=== PATIENT | female | born 1950 | race Caucasian/White ===

== ENCOUNTER 2019-02-23 14:05 | Inpatient (IN) ==
[2019-02-23] MEDS ORDERED: *HR* Dextrose 50 % in Water (Syg) 50 ML SYRINGE IVP PRN (16:45)
[2019-02-23] MEDS ORDERED: Dextrose Gel 15 GM/37.5 ML TUBE PO PRN ×2 (16:45)
[2019-02-23] MEDS ORDERED: D5% in Water 1,000 ML IVC PRN (16:45)
[2019-02-23] MEDS: *HR* Metformin 500 MG TABLET PO SCH (16:54)
[2019-02-23] MEDS: cephALEXin 500 MG CAPSULE PO SCH ×2 (16:54→20:53)
[2019-02-23] MEDS: Insulin LISPRO 300 UNITS/3 ML VIAL SQ SCH (16:54)
[2019-02-23] MEDS: Insulin DETEMIR 100 UNIT/ML X5UNITS SQ SCH (20:53)
[2019-02-23] MEDS: Doxycycline 100 MG CAPSULE PO SCH (20:53)
[2019-02-23] MEDS ORDERED: Verapamil ER (24 HR) 120 MG TABLET.ER PO ONE (21:00)
[2019-02-23] MEDS ORDERED: Verapamil ER (24 HR) 240 MG TABLET.ER PO SCH (21:00)
[2019-02-24] MEDS: *HR* OxyCODONE Immed Rel 5 MG TABLET PO PRN ×2 (02:29→10:11)
[2019-02-24 07:23] LABS: Basophils % 0.2 %; Eosinophils # 0.2 K/mcL (0.0-0.6); Eosinophils % 1.3 %; Hematocrit 33.6 % (35.3-44.9); Hemoglobin 10.5 g/dL (11.5-15.4); Immature Granulocytes % 0.7 % (0-4); Lymphocytes # 2.5 K/mcL (0.6-4.6); Lymphocytes % 17.6 %; Mean Corpuscular HGB Conc 31.3 g/dL (31.6-35.5); Mean Corpuscular Hemoglobin 30.3 pg (28.0-33.3); Mean Corpuscular Volume 97.1 fL (83.0-100.0); Mean Platelet Volume 10.3 fL (9.4-12.4); Monocytes # 1.2 K/mcL (0.0-1.3); Monocytes % 8.1 %; Platelet Count 376 K/mcL (140-400); Red Blood Count 3.46 M/mcL (3.82-4.97); Red Cell Distribution Width 13.9 % (11.5-14.5); Segmented Neutrophils % 72.1 %; White Blood Count 14.2 K/mcL (4.3-11.1)
[2019-02-24 07:31] LABS: Neutrophils # 10.2 K/mcL (1.6-8.9)
[2019-02-24 08:24] LABS: BUN/Creatinine Ratio 37 (6-26); Blood Urea Nitrogen 28 mg/dL (8-23); Carbon Dioxide 33 mEq/L (23-29); Chloride 104 mEq/L (98-107); Glucose 77 mg/dL (70-105); Osmolality,Calculated 296 (280-300); Potassium 4.5 mEq/L (3.5-5.1); Sodium 141 mEq/L (136-145); eGFR For African Americans > 60 (> 60); eGFR For Non-African Americans > 60 (> 60)
[2019-02-24] MEDS: Insulin LISPRO 300 UNITS/3 ML VIAL SQ SCH ×3 (08:31→17:24)
[2019-02-24] MEDS: *HR* Metformin 500 MG TABLET PO SCH ×2 (08:39→17:24)
[2019-02-24] MEDS: Verapamil ER (24 HR) 240 MG TABLET.ER PO SCH ×2 (08:39→20:23)
[2019-02-24] MEDS: cephALEXin 500 MG CAPSULE PO SCH ×3 (08:40→17:24)
[2019-02-24] MEDS: *HR* SitaGLIPtin 25 MG TABLET PO SCH (08:40)
[2019-02-24] MEDS: Cholecalciferol (D-3) 1,000 UNIT (25MCG) TABLET PO SCH (08:40)
[2019-02-24] MEDS: Furosemide 40 MG TABLET PO SCH (08:40)
[2019-02-24] MEDS: BuPROPion XL (24 HR) 150 MG TABLET PO SCH (08:40)
[2019-02-24] MEDS: Doxycycline 100 MG CAPSULE PO SCH (08:41)
[2019-02-24] MEDS: Aspirin Enteric Coated 81 MG Tablet PO SCH (08:41)
[2019-02-24] MEDS: FLUoxetine 20 MG CAPSULE PO SCH (08:41)
[2019-02-24] MEDS: predniSONE 20 MG TABLET PO SCH (08:41)
--- NOTE | 2019-02-24 17:16 | Internal Med History&Physical ---
Date of Encounter: 02/24/19 Time of Encounter: 16:50 Assessment and Plan (1) Cellulitis Current visit: No Status: Acute She will complete prescribed course of antibiotics today. Qualifiers: Site of cellulitis: extremity Site of cellulitis of extremity: lower extremity Laterality: right Qualified Code(s): L03.115 - Cellulitis of right lower limb (2) DM type 2 (diabetes mellitus, type 2) Current visit: No Status: Chronic Hemoglobin A1c was 7.0% on 02/16/2019. Continue Levemir, Glucophage, Januvia, and Accu-Cheks with SSI. Qualifiers: Diabetes mellitus vermin exterminator insulin use: with vermin exterminator use Diabetes mellitus complication status: with kidney complications Diabetes mellitus complication detail: with chronic kidney disease Chronic kidney disease stage: stage 3 (moderate) Qualified Code(s): E11.22 - Type 2 diabetes mellitus with diabetic chronic kidney disease; N18.3 - Chronic kidney disease, stage 3 (moderate); Z79.4 - USP (current) use of insulin (3) CKD (chronic kidney disease) stage 3, GFR 30-59 ml/min Current visit: No Status: Chronic Creatinine today was 0.76 with estimated GFR > 60. Monitor renal indices. (4) Hypertension Current visit: No Status: Chronic Continue lisinopril and verapamil. Qualifiers: Hypertension type: essential hypertension Qualified Code(s): I10 - Essential (primary) hypertension (5) Hypothyroid Current visit: No Status: Chronic TSH was decreased at 0.290 on 02/07/2019. Synthroid dose does not appear to have changed since lab was drawn. Recheck TSH in a.m. Qualifiers: Hypothyroidism type: acquired Qualified Code(s): E03.9 - Hypothyroidism, unspecified (6) Anemia Current visit: No Status: Chronic February 24. Check anemia testing in a.m. Qualifiers: Anemia type: other cause Other causes of anemia: other cause, not classif ied Qualified Code(s): D64.89 - Other specified anemias (7) Leukocytosis Current visit: No Status: Acute Present on most labs since February 2014. Neutrophilia rarely present. Continue to monitor. Qualifiers: Leukocytosis type: unspecified Qualified Code(s): D72.829 - Elevated white blood cell count, unspecified (8) COPD (chronic obstructive pulmonary disease) Current visit: No Status: Chronic Continue Pro Air MDI as needed. Qualifiers: COPD type: unspecified COPD Qualified Code(s): J44.9 - Chronic obstructive pulmonary disease, unspecified (9) Gout Current visit: No Status: Acute She was started on allopurinol and prednisone during her recent [facility] stay. Recheck uric acid level in a.m. Qualifiers: Gout site: foot Gout etiology: unspecified cause Chronicity: acute Laterality: right Qualified Code(s): M10.9 - Gout, unspecified (10) Venous stasis Current visit: No Status: Chronic Continue present Rx to right lower leg. Internal Medicine - H&P: HPI Chief complaint: Cellulitis, venous stasis, gout Plans for Post Hospital Care: Home History of present illness: Ms. Burrell is a 68 year old female who was hospitalized in acute-care at [facility] February 16- after presenting with right foot/lower leg pain, erythema, and edema. She was diagnosed with cellulitis, venous stasis, and gout. Uric acid level was elevated at 11.2. She was started on prednisone and allopurinol along with antibiotics. She was discharged to [facility] for rehabilitation therapy prior to returning to independent living. She denies past knowledge of gout. She had remote left elbow fracture. She has DJD. She denies other bone joint or muscle disorders. Past Med Surg Social Fam HX - Past Medical History Medical history: arthritis, CHF, COPD, diabetes, hyperlipidemia, hypertension, thyroid disease, venous stasis, other Additional medical history: sleep apnea, stage 3 kidney failure Psychiatric history: anxiety, depression - Past Surgical History Surgical History: thyroidectomy Additional surgical history: elbow surgery - Social History Smoking Status: Former smoker Smokeless Tobacco Status: No Alcohol use: none Drug use: none - Family History Mother Adopted: No Family Member Ethnicity: Non- Living Status: Hx Family Cardiac Disorders: Yes Hx Family Respiratory Disorders: Yes Hx Family Cancer: Yes Hx Family GI Disorders: No Hx Family Endocrine Disorder: Yes (DM) Hx Family Neuromuscular Disorders: No Hx Family Neurologic Disorders: No Hx Family HEENT Disorders: No Hx Family Autoimmune Disorders: No Father Family Member Ethnicity: Non- Living Status: Hx Family Cardiac Disorders: Yes Hx Family Respiratory Disorders: No Hx Family Cancer: Yes (prostate) Hx Family GI Disorders: No Hx Family Endocrine Disorder: Yes Hx Family Neuromuscular Disorders: No Hx Family Neurologic Disorders: No Hx Family HEENT Disorders: No Hx Family Autoimmune Disorders: No Internal Medicine - H&P: Meds Ezetimibe [Zetia] 10 mg PO DAILY 04/25/15 [History] Verapamil ER (24 HR) [Calan SR] 240 mg PO BID 04/25/15 [History] Bupropion HCl [Wellbutrin Xl] 300 mg PO DAILY 05/22/16 [History] Albuterol Sulfate [Proair Hfa] 2 puff IH Q4H PRN 07/21/17 [History] Cholecalciferol (D-3) [Vitamin D] 4,000 unit PO DAILY 07/21/17 [History] FLUoxetine HCl [Prozac] 40 mg PO DAILY 07/21/17 [History] Ferrous Sulfate 325 mg PO DAILY 07/21/17 [History] Insulin Glargine,Hum.rec.anlog [Lantus Solostar] 50 units SQ HS 07/21/17 [History] Lisinopril 2.5 mg PO DAILY 07/21/17 [History] Metformin HCl [Glucophage] 1,000 mg PO BID 07/21/17 [History] Aspirin [Adult Aspirin Regimen] 81 mg PO DAILY 02/16/19 [History] Furosemide [Lasix] 40 mg PO DAILY 02/16/19 [History] Insulin ASPART [Novolog Flexpen] 0 unit SQ TIDAC 02/16/19 [History] Levothyroxine Sodium 175 mcg PO QAM 02/16/19 [History] Pravastatin Sodium [Pravachol] 40 mg PO HS 02/16/19 [History] SitaGLIPtin [Januvia] 100 mg PO DAILY 02/16/19 [History] Allopurinol [Zyloprim 100 MG] 100 mg PO DAILY #30 tablet 02/20/19 [Rx] OxyCODONE Immed Rel [Roxicodone 5 MG] 10 mg PO Q6HR PRN 5 Days #20 tablet 02/20/19 [Rx] predniSONE [PredniSONE] 40 mg PO DAILY #28 tablet 02/20/19 [Rx] Cephalexin [Keflex] 500 mg PO QID 1 Days #4 capsule 02/23/19 [Rx] Doxycycline 100 mg PO BID 1 Days #2 capsule 02/23/19 [Rx] Allergy/AdvReac Type Severity Reaction Status Date / Time No Known Allergies Allergy Verified 02/16/19 13:27 All Systems PM: A 10-system review of systems was performed and is negative for pertinent findings except as documented above in the HPI. Review of systems: Gen.: Her weight has been stable at approximately 114 kg since March 2015 [facility] hospitalization. Cardiovascular: She has a history of hypertension but denies NV heart failure angina DVT or pulmonary embolus. She has not had a stress test or heart catheterization. She reports being told she has a "enlarged heart". Respiratory: She smoked from approximately age [age] up to 2 packs per day. She thinks she had PFTs approximately 2009 at [facility]. She does not wear home oxygen. GI: She denies disorders of her liver gallbladder or exocrine pancreas : She reported at the March 2015 hospitalization she thinks she has a small kidney stone. She has CKD stage 3 and follows with a [place] coal hauler operator. She denies other kidney or bladder disorders Neurologic: She denies large distribution strokes or seizures. Endocrine: She had thyroid cancer with total thyroidectomy in the past. She is on replacement levothyroxine. She has hyperlipidemia and was diagnosed with DM 2 approximately 2004. Hematology/oncology: She had thyroid cancer as mentioned. She denies other internal malignancies . She was unaware she had anemia on most labs since March 2015. Psychiatric: She has depression but no significant anxiety or other mental health issues Musk skeletal: As per history of present illness - Constitutional Vitals: Temp Pulse Resp BP Pulse Ox 98.6 F 59 16 164/66 91 02/24/19 07:07 02/24/19 07:07 02/24/19 07:07 02/24/19 07:07 02/24/19 07:07 Exam: Gen.: She is a well-developed obese female lying in bed who appears in no severe distress at present time. HEENT: Head is atraumatic and normocephalic. Eyes: EOMI. There is no scleral icterus. Mouth: Mucosa is moist. Neck: Supple and nontender. There is no thyromegaly or adenopathy noted. Heart: Regular without murmurs gallops or ectopics Lungs: No wheezes or crackles are heard. Abdomen: Soft and nontender. No masses or guarding are noted. Extremities: There is no cyanosis edema or clubbing noted. Dorsalis pedis and posterior tibial pulses are trace palpable bilaterally. She has venous stasis erythema of the right lower leg. There is slight tenderness to touch the area. She has no pain with movement of the first MTP joints. There is slight discomfort on passive range of motion of the right ankle. Neurologic: Mental status: She is talkative and a fair to good historian. She does not remember some details of her history. Cranial nerves: Smile is symmetric. Forehead wrinkles bilaterally. Tongue protrudes midline. EOMI. Motor: There is no pronator drift. Cerebellar: Finger to nose is intact bilaterally. Skin: Warm and dry Internal Med - H&P Results - Labs CBC & Chem 7: 02/24/19 07:16 02/24/19 07:16 Labs: Short CBC 02/24/19 Range/Units 07:16 WBC 14.2 H (4.3-11.1) K/mcL Hgb 10.5 L (11.5-15.4) g/dL Hct 33.6 L (35.3-44.9) % Plt Count 376 (140-400) K/mcL Neutrophils # 10.2 H (1.6-8.9) K/mcL BMP 02/24/19 07:16 Sodium 141 Potassium 4.5 Chloride 104 Carbon Dioxide 33 H BUN 28 H Creatinine 0.76 Glucose 77 Calcium 9.0
[2019-02-24] MEDS: Insulin DETEMIR 100 UNIT/ML X5UNITS SQ SCH (20:23)
[2019-02-25 05:08] LABS: Uric Acid 7.4 mg/dL (2.3-7.6)
[2019-02-25 05:26] LABS: Thyroid Stimulating Hormone 2.852 mcIU/mL (0.340-5.600)
[2019-02-25] MEDS: *HR* OxyCODONE Immed Rel 5 MG TABLET PO PRN (05:57)
[2019-02-25] MEDS: Aspirin Enteric Coated 81 MG Tablet PO SCH (08:35)
[2019-02-25] MEDS: Verapamil ER (24 HR) 240 MG TABLET.ER PO SCH ×2 (08:35→20:14)
[2019-02-25] MEDS: *HR* Metformin 500 MG TABLET PO SCH ×2 (08:35→16:58)
[2019-02-25] MEDS: Insulin LISPRO 300 UNITS/3 ML VIAL SQ SCH ×3 (08:35→16:59)
[2019-02-25] MEDS: *HR* SitaGLIPtin 25 MG TABLET PO SCH (08:36)
[2019-02-25] MEDS: Furosemide 40 MG TABLET PO SCH (08:36)
[2019-02-25] MEDS: predniSONE 20 MG TABLET PO SCH (08:36)
[2019-02-25] MEDS: FLUoxetine 20 MG CAPSULE PO SCH (08:37)
[2019-02-25] MEDS: BuPROPion XL (24 HR) 150 MG TABLET PO SCH (08:37)
[2019-02-25] MEDS: Cholecalciferol (D-3) 1,000 UNIT (25MCG) TABLET PO SCH (08:37)
[2019-02-25 09:20] LABS: Folate 8.1 ng/mL (3.0-16.0)
--- NOTE | 2019-02-25 12:15 | Internal Med Progress Note ---
Date of Encounter: 02/25/19 Time of Encounter: 12:08 - Assessment and plan (1) Cellulitis Current Visit: No Status: Acute Assessment and plan: February 25. Antibiotics have been completed. Continue to monitor for recurrent leg cellulitis Qualifiers: Site of cellulitis: extremity Site of cellulitis of extremity: lower extremity Laterality: right Qualified Code(s): L03.115 - Cellulitis of right lower limb (2) DM type 2 (diabetes mellitus, type 2) Current Visit: No Status: Chronic Assessment and plan: February 25. Hemoglobin A1c was 7.0% on 02/16/2019. Continue Levemir, Glucophage, Januvia, and Accu-Cheks with SSI. Qualifiers: Diabetes mellitus half-way insulin use: with half-way use Diabetes mellitus complication status: with kidney complications Diabetes mellitus complication detail: with chronic kidney disease Chronic kidney disease stage: stage 3 (moderate) Qualified Code(s): E11.22 - Type 2 diabetes mellitus with diabetic chronic kidney disease; N18.3 - Chronic kidney disease, stage 3 (moderate); Z79.4 - termite exterminator helper (current) use of insulin (3) CKD (chronic kidney disease) stage 3, GFR 30-59 ml/min Current Visit: No Status: Chronic Assessment and plan: February 25. Monitor renal indices. (4) Hypertension Current Visit: No Status: Chronic Assessment and plan: February 25. Continue lisinopril and verapamil. Qualifiers: Hypertension type: essential hypertension Qualified Code(s): I10 - Essential (primary) hypertension (5) Hypothyroid Current Visit: No Status: Chronic Assessment and plan: February 25. TSH normal at 2.852. Continue present dose Synthroid. Qualifiers: Hypothyroidism type: acquired Qualified Code(s): E03.9 - Hypothyroidism, unspecified (6) Anemia Current Visit: No Status: Chronic Assessment and plan: February 25. Anemia testing showed iron 29, transferrin saturation 15%, transferrin 134, ferritin 146, B12 364, and folate 8.1. Continue to monitor CBC. Qualifiers: Anemia type: other cause Other causes of anemia: other cause, not classified Qualified Code(s): D64.89 - Other specified anemias (7) Leukocytosis Current Visit: No Status: Acute Assessment and plan: February 25. Present on most labs since February 2014. Neutrophilia rarely present. Continue to monitor. Qualifiers: Leukocytosis type: unspecified Qualified Code(s): D72.829 - Elevated white blood cell count, unspecified (8) COPD (chronic obstructive pulmonary disease) Current Visit: No Status: Chronic Assessment and plan: February 25. Continue Pro-air MDI as needed. Qualifiers: COPD type: unspecified COPD Qualified Code(s): J44.9 - Chronic obstructive pulmonary disease, unspecified (9) Gout Current Visit: No Status: Acute Assessment and plan: February 25. Uric acid level above desirable at 7.4. Increase allopurinol to 200 mg daily. Qualifiers: Gout site: foot Gout etiology: unspecified cause Chronicity: acute Laterality: right Qualified Code(s): M10.9 - Gout, unspecified (10) Venous stasis Current Visit: No Status: Chronic Assessment and plan: February 25. Continue present Rx. - Subjective Interval history: February 25. She has no new complaints. - Constitutional Vitals: Temp Pulse Resp BP Pulse Ox 97.8 F 73 19 168/77 92 02/25/19 06:50 02/25/19 06:50 02/25/19 06:50 02/25/19 06:50 02/25/19 06:50 Exam: He is resting comfortably in bed and appears in no acute distress. Her affect is bright and cheerful. She has slight decrease in erythema and edema of the right leg. The left leg shows 0 to trace pitting edema. I reviewed her medications and lab results. Internal Medicine: Result - Labs CBC & Chem 7: 02/24/19 07:16 02/24/19 07:16 Consult Discharge Plan - Plan Referrals: Jeremy Mckinnon DO [Primary Care Provider] - 1 week
[2019-02-25] MEDS: Insulin DETEMIR 100 UNIT/ML X5UNITS SQ SCH (20:14)
[2019-02-26] MEDS: *HR* SitaGLIPtin 25 MG TABLET PO SCH (08:14)
[2019-02-26] MEDS: Insulin LISPRO 300 UNITS/3 ML VIAL SQ SCH ×3 (08:14→17:14)
[2019-02-26] MEDS: Cholecalciferol (D-3) 1,000 UNIT (25MCG) TABLET PO SCH (08:15)
[2019-02-26] MEDS: *HR* OxyCODONE Immed Rel 5 MG TABLET PO PRN ×2 (08:15→17:13)
[2019-02-26] MEDS: *HR* Metformin 500 MG TABLET PO SCH ×2 (08:15→17:14)
[2019-02-26] MEDS: FLUoxetine 20 MG CAPSULE PO SCH (08:16)
[2019-02-26] MEDS: Aspirin Enteric Coated 81 MG Tablet PO SCH (08:16)
[2019-02-26] MEDS: predniSONE 20 MG TABLET PO SCH (08:16)
[2019-02-26] MEDS: BuPROPion XL (24 HR) 150 MG TABLET PO SCH (08:16)
[2019-02-26] MEDS: Furosemide 40 MG TABLET PO SCH (08:17)
[2019-02-26] MEDS: Verapamil ER (24 HR) 240 MG TABLET.ER PO SCH ×2 (08:23→20:40)
[2019-02-26] MEDS: Insulin DETEMIR 100 UNIT/ML X5UNITS SQ SCH (20:40)
[2019-02-27] MEDS: Verapamil ER (24 HR) 240 MG TABLET.ER PO SCH ×2 (07:37→20:47)
[2019-02-27] MEDS: *HR* Metformin 500 MG TABLET PO SCH ×2 (07:37→16:48)
[2019-02-27] MEDS: Cholecalciferol (D-3) 1,000 UNIT (25MCG) TABLET PO SCH (07:38)
[2019-02-27] MEDS: *HR* SitaGLIPtin 25 MG TABLET PO SCH (07:38)
[2019-02-27] MEDS: BuPROPion XL (24 HR) 150 MG TABLET PO SCH (07:38)
[2019-02-27] MEDS: FLUoxetine 20 MG CAPSULE PO SCH (07:38)
[2019-02-27] MEDS: *HR* OxyCODONE Immed Rel 5 MG TABLET PO PRN ×2 (07:39→16:47)
[2019-02-27] MEDS: predniSONE 20 MG TABLET PO SCH (07:39)
[2019-02-27] MEDS: Furosemide 40 MG TABLET PO SCH (07:40)
[2019-02-27] MEDS: Aspirin Enteric Coated 81 MG Tablet PO SCH (07:40)
[2019-02-27] MEDS: Insulin LISPRO 300 UNITS/3 ML VIAL SQ SCH ×3 (07:54→16:49)
[2019-02-27] MEDS: Ammonium Lactate 30 APPL/225 GM BOTTLE TP SCH (11:58)
[2019-02-27] MEDS: Insulin DETEMIR 100 UNIT/ML X5UNITS SQ SCH (21:00)
[2019-02-28] MEDS: *HR* OxyCODONE Immed Rel 5 MG TABLET PO PRN ×2 (06:59→13:22)
[2019-02-28] MEDS: Ascorbic Acid 500 MG TABLET PO SCH (06:59)
[2019-02-28] MEDS: predniSONE 20 MG TABLET PO SCH (07:58)
[2019-02-28] MEDS: Furosemide 40 MG TABLET PO SCH (07:58)
[2019-02-28] MEDS: Cholecalciferol (D-3) 1,000 UNIT (25MCG) TABLET PO SCH (07:59)
[2019-02-28] MEDS: Verapamil ER (24 HR) 240 MG TABLET.ER PO SCH ×2 (07:59→20:09)
[2019-02-28] MEDS: Aspirin Enteric Coated 81 MG Tablet PO SCH (07:59)
[2019-02-28] MEDS: FLUoxetine 20 MG CAPSULE PO SCH (07:59)
[2019-02-28] MEDS: BuPROPion XL (24 HR) 150 MG TABLET PO SCH (07:59)
[2019-02-28] MEDS: *HR* Metformin 500 MG TABLET PO SCH ×2 (07:59→16:46)
[2019-02-28] MEDS: Ammonium Lactate 30 APPL/225 GM BOTTLE TP SCH (08:00)
[2019-02-28] MEDS: Insulin LISPRO 300 UNITS/3 ML VIAL SQ SCH ×3 (08:00→16:45)
[2019-02-28] MEDS: *HR* SitaGLIPtin 25 MG TABLET PO SCH (08:00)
[2019-02-28] MEDS: Insulin DETEMIR 100 UNIT/ML X5UNITS SQ SCH ×2 (21:50→22:16)
[2019-03-01] MEDS: Ascorbic Acid 500 MG TABLET PO SCH (06:14)
[2019-03-01 06:34] LABS: Basophils % 0.3 %; Eosinophils # 0.3 K/mcL (0.0-0.6); Eosinophils % 1.9 %; Hematocrit 36.2 % (35.3-44.9); Hemoglobin 11.5 g/dL (11.5-15.4); Immature Granulocytes % 0.7 % (0-4); Lymphocytes # 2.5 K/mcL (0.6-4.6); Lymphocytes % 18.2 %; Mean Corpuscular HGB Conc 31.8 g/dL (31.6-35.5); Mean Corpuscular Hemoglobin 30.6 pg (28.0-33.3); Mean Corpuscular Volume 96.3 fL (83.0-100.0); Mean Platelet Volume 11.3 fL (9.4-12.4); Monocytes # 0.7 K/mcL (0.0-1.3); Monocytes % 4.7 %; Platelet Count 357 K/mcL (140-400); Red Blood Count 3.76 M/mcL (3.82-4.97); Red Cell Distribution Width 13.9 % (11.5-14.5); Segmented Neutrophils % 74.2 %; White Blood Count 13.8 K/mcL (4.3-11.1)
[2019-03-01 06:42] LABS: Neutrophils # 10.2 K/mcL (1.6-8.9)
[2019-03-01 06:58] LABS: BUN/Creatinine Ratio 44 (6-26); Blood Urea Nitrogen 43 mg/dL (8-23); Calcium 8.9 mg/dL (8.6-10.3); Carbon Dioxide 32 mEq/L (23-29); Chloride 102 mEq/L (98-107); Glucose 97 mg/dL (70-105); Osmolality,Calculated 299 (280-300); Potassium 4.6 mEq/L (3.5-5.1); Sodium 139 mEq/L (136-145); eGFR For African Americans > 60 (> 60); eGFR For Non-African Americans 56 (> 60)
[2019-03-01] MEDS: Insulin LISPRO 300 UNITS/3 ML VIAL SQ SCH ×3 (07:48→17:39)
[2019-03-01] MEDS: Aspirin Enteric Coated 81 MG Tablet PO SCH (08:27)
[2019-03-01] MEDS: *HR* Metformin 500 MG TABLET PO SCH ×2 (08:27→17:39)
[2019-03-01] MEDS: Cholecalciferol (D-3) 1,000 UNIT (25MCG) TABLET PO SCH (08:28)
[2019-03-01] MEDS: predniSONE 20 MG TABLET PO SCH (08:28)
[2019-03-01] MEDS: BuPROPion XL (24 HR) 150 MG TABLET PO SCH (08:28)
[2019-03-01] MEDS: Furosemide 40 MG TABLET PO SCH (08:28)
[2019-03-01] MEDS: FLUoxetine 20 MG CAPSULE PO SCH (08:28)
[2019-03-01] MEDS: *HR* SitaGLIPtin 25 MG TABLET PO SCH (08:28)
[2019-03-01] MEDS: Ammonium Lactate 30 APPL/225 GM BOTTLE TP SCH (08:37)
[2019-03-01] MEDS: Verapamil ER (24 HR) 240 MG TABLET.ER PO SCH ×2 (08:37→22:10)
[2019-03-01] MEDS: *HR* OxyCODONE Immed Rel 5 MG TABLET PO PRN ×2 (08:57→22:10)
[2019-03-02] MEDS: Ascorbic Acid 500 MG TABLET PO SCH (06:01)
[2019-03-02] MEDS: Insulin DETEMIR 100 UNIT/ML X5UNITS SQ SCH ×2 (06:06→20:29)
[2019-03-02] MEDS: Insulin LISPRO 300 UNITS/3 ML VIAL SQ SCH ×3 (07:49→17:09)
[2019-03-02] MEDS: Furosemide 40 MG TABLET PO SCH (08:05)
[2019-03-02] MEDS: predniSONE 20 MG TABLET PO SCH (08:05)
[2019-03-02] MEDS: Aspirin Enteric Coated 81 MG Tablet PO SCH (08:05)
[2019-03-02] MEDS: BuPROPion XL (24 HR) 150 MG TABLET PO SCH (08:05)
[2019-03-02] MEDS: Cholecalciferol (D-3) 1,000 UNIT (25MCG) TABLET PO SCH (08:05)
[2019-03-02] MEDS: *HR* SitaGLIPtin 25 MG TABLET PO SCH (08:05)
[2019-03-02] MEDS: FLUoxetine 20 MG CAPSULE PO SCH (08:06)
[2019-03-02] MEDS: *HR* Metformin 500 MG TABLET PO SCH ×2 (08:06→17:09)
[2019-03-02] MEDS: Ammonium Lactate 30 APPL/225 GM BOTTLE TP SCH (08:06)
[2019-03-02] MEDS: Verapamil ER (24 HR) 240 MG TABLET.ER PO SCH ×2 (08:09→20:22)
--- NOTE | 2019-03-02 14:38 | Internal Med Progress Note ---
Date of Encounter: 03/02/19 Time of Encounter: 12:45 - Assessment and plan (1) Cellulitis Current Visit: No Status: Acute Assessment and plan: February 25. Antibiotics have been completed. Continue to monitor for recurrent leg cellulitis Qualifiers: Site of cellulitis: extremity Site of cellulitis of extremity: lower extremity Laterality: right Qualified Code(s): L03.115 - Cellulitis of right lower limb (2) DM type 2 (diabetes mellitus, type 2) Current Visit: No Status: Chronic Assessment and plan: February 25. Hemoglobin A1c was 7.0% on 02/16/2019. Continue Levemir, Glucophage, Januvia, and Accu-Cheks with SSI. Qualifiers: Diabetes mellitus longterm insulin use: with longterm use Diabetes mellitus complication status: with kidney complications Diabetes mellitus complication detail: with chronic kidney disease Chronic kidney disease stage: stage 3 (moderate) Qualified Code(s): E11.22 - Type 2 diabetes mellitus with diabetic chronic kidney disease; N18.3 - Chronic kidney disease, stage 3 (moderate); Z79.4 - termite helper (current) use of insulin (3) CKD (chronic kidney disease) stage 3, GFR 30-59 ml/min Current Visit: No Status: Chronic Assessment and plan: February 25. Monitor renal indices. (4) Hypertension Current Visit: No Status: Chronic Assessment and plan: February 25. Continue lisinopril and verapamil. Qualifiers: Hypertension type: essential hypertension Qualified Code(s): I10 - Essential (primary) hypertension (5) Hypothyroid Current Visit: No Status: Chronic Assessment and plan: February 25. TSH normal at 2.852. Continue present dose Synthroid. Qualifiers: Hypothyroidism type: acquired Qualified Code(s): E03.9 - Hypothyroidism, unspecified (6) Anemia Current Visit: No Status: Chronic Assessment and plan: February 25. Anemia testing showed iron 29, transferrin saturation 15%, transferrin 134, ferritin 146, B12 364, and folate 8.1. Continue to monitor CBC. March 02. Hemoglobin improved to 11.5. Continue to monitor. Qualifiers: Anemia type: other cause Other causes of anemia: other cause, not classified Qualified Code(s): D64.89 - Other specified anemias (7) Leukocytosis Current Visit: No Status: Acute Assessment and plan: February 25. Present on most labs since February 2014. Neutrophilia rarely present. Continue to monitor. Qualifiers: Leukocytosis type: unspecified Qualified Code(s): D72.829 - Elevated white blood cell count, unspecified (8) COPD (chronic obstructive pulmonary disease) Current Visit: No Status: Chronic Assessment and plan: February 25. Continue Pro-air MDI as needed. Qualifiers: COPD type: unspecified COPD Qualified Code(s): J44.9 - Chronic obstructive pulmonary disease, unspecified (9) Gout Current Visit: No Status: Acute Assessment and plan: February 25. Uric acid level above desirable at 7.4. Increase allopurinol to 200 mg daily. March 02. Check uric acid level with other labs in a.m. Qualifiers: Gout site: foot Gout etiology: unspecified cause Chronicity: acute Laterality: right Qualified Code(s): M10.9 - Gout, unspecified (10) Venous stasis Current Visit: No Status: Chronic Assessment and plan: February 25. Continue present Rx. (11) Ankle pain Current Visit: Yes Status: Acute Assessment and plan: March 02. CT of feet will be done along with additional labs to further evaluate. Qualifiers: Chronicity: unspecified Laterality: bilateral Qualified Code(s): M25.571 - Pain in right ankle and joints of right foot; M25.572 - Pain in left ankle and joints of left foot - Subjective Interval history: February 25. She has no new complaints. March 02. She complains of pain in her feet/ankles upon standing. - Constitutional Vitals: Temp Pulse Resp BP Pulse Ox 97.7 F 65 20 145/62 97 03/02/19 06:47 03/02/19 06:47 03/02/19 06:47 03/02/19 06:47 03/01/19 18:57 Exam: She is resting currently a chair at bedside. There is no pain on passive range of motion of her foot at the ankle or MTP joints. There is unchanged woody edema and chronic venous stasis pigmentation change. I reviewed her medications and lab results. Internal Medicine: Result - Labs CBC & Chem 7: 03/01/19 05:50 03/01/19 05:50 Consult Discharge Plan - Plan Referrals: Jeremy Mckinnon DO [Primary Care Provider] - 1 week
[2019-03-02] MEDS: *HR* OxyCODONE Immed Rel 5 MG TABLET PO PRN (15:44)
[2019-03-03] MEDS: Ascorbic Acid 500 MG TABLET PO SCH (06:05)
[2019-03-03] MEDS: Insulin LISPRO 300 UNITS/3 ML VIAL SQ SCH ×3 (08:33→16:37)
[2019-03-03] MEDS: predniSONE 20 MG TABLET PO SCH (08:37)
[2019-03-03] MEDS: FLUoxetine 20 MG CAPSULE PO SCH (08:37)
[2019-03-03] MEDS: Cholecalciferol (D-3) 1,000 UNIT (25MCG) TABLET PO SCH (08:37)
[2019-03-03] MEDS: Aspirin Enteric Coated 81 MG Tablet PO SCH (08:37)
[2019-03-03] MEDS: *HR* SitaGLIPtin 25 MG TABLET PO SCH (08:38)
[2019-03-03] MEDS: *HR* Metformin 500 MG TABLET PO SCH ×2 (08:38→16:36)
[2019-03-03] MEDS: Furosemide 40 MG TABLET PO SCH (08:38)
[2019-03-03] MEDS: BuPROPion XL (24 HR) 150 MG TABLET PO SCH (08:38)
[2019-03-03] MEDS: Verapamil ER (24 HR) 240 MG TABLET.ER PO SCH ×2 (08:41→20:23)
[2019-03-03] MEDS: *HR* OxyCODONE Immed Rel 5 MG TABLET PO PRN ×2 (08:41→16:36)
[2019-03-03] MEDS: Ammonium Lactate 30 APPL/225 GM BOTTLE TP SCH (08:42)
[2019-03-03] MEDS: Insulin DETEMIR 100 UNIT/ML X5UNITS SQ SCH (21:55)
[2019-03-04] MEDS: Ascorbic Acid 500 MG TABLET PO SCH (06:21)
[2019-03-04 06:28] LABS: Basophils % 0.3 %; Eosinophils # 0.2 K/mcL (0.0-0.6); Eosinophils % 1.6 %; Hematocrit 36.3 % (35.3-44.9); Hemoglobin 11.5 g/dL (11.5-15.4); Immature Granulocytes % 0.5 % (0-4); Lymphocytes % 22.5 %; Mean Corpuscular HGB Conc 31.7 g/dL (31.6-35.5); Mean Corpuscular Hemoglobin 30.1 pg (28.0-33.3); Mean Platelet Volume 11.7 fL (9.4-12.4); Monocytes # 0.8 K/mcL (0.0-1.3); Monocytes % 5.7 %; Neutrophils # 9.2 K/mcL (1.6-8.9); Platelet Count 314 K/mcL (140-400); Red Blood Count 3.82 M/mcL (3.82-4.97); Red Cell Distribution Width 14.2 % (11.5-14.5); Segmented Neutrophils % 69.4 %; White Blood Count 13.2 K/mcL (4.3-11.1)
[2019-03-04 06:51] LABS: BUN/Creatinine Ratio 45 (6-26); Blood Urea Nitrogen 46 mg/dL (8-23); Calcium 8.9 mg/dL (8.6-10.3); Carbon Dioxide 33 mEq/L (23-29); Chloride 99 mEq/L (98-107); Glucose 129 mg/dL (70-105); Osmolality,Calculated 300 (280-300); Potassium 4.8 mEq/L (3.5-5.1); Sodium 138 mEq/L (136-145); eGFR For African Americans > 60 (> 60); eGFR For Non-African Americans 54 (> 60)
[2019-03-04] MEDS: BuPROPion XL (24 HR) 150 MG TABLET PO SCH (08:31)
[2019-03-04] MEDS: FLUoxetine 20 MG CAPSULE PO SCH (08:31)
[2019-03-04] MEDS: Aspirin Enteric Coated 81 MG Tablet PO SCH (08:31)
[2019-03-04] MEDS: *HR* Metformin 500 MG TABLET PO SCH ×2 (08:32→16:16)
[2019-03-04] MEDS: predniSONE 20 MG TABLET PO SCH (08:32)
[2019-03-04] MEDS: Furosemide 40 MG TABLET PO SCH (08:32)
[2019-03-04] MEDS: Cholecalciferol (D-3) 1,000 UNIT (25MCG) TABLET PO SCH (08:33)
[2019-03-04] MEDS: *HR* SitaGLIPtin 25 MG TABLET PO SCH (08:33)
[2019-03-04] MEDS: Insulin LISPRO 300 UNITS/3 ML VIAL SQ SCH ×3 (08:38→16:16)
[2019-03-04] MEDS: Verapamil ER (24 HR) 240 MG TABLET.ER PO SCH ×2 (08:38→20:08)
[2019-03-04] MEDS: Ammonium Lactate 30 APPL/225 GM BOTTLE TP SCH (08:39)
--- NOTE | 2019-03-04 13:27 | Internal Med Progress Note ---
Date of Encounter: 03/04/19 Time of Encounter: 13:20 - Assessment and plan (1) Cellulitis Current Visit: No Status: Acute Assessment and plan: February 25. Antibiotics have been completed. Continue to monitor for recurrent leg cellulitis Qualifiers: Site of cellulitis: extremity Site of cellulitis of extremity: lower extremity Laterality: right Qualified Code(s): L03.115 - Cellulitis of right lower limb (2) DM type 2 (diabetes mellitus, type 2) Current Visit: No Status: Chronic Assessment and plan: February 25. Hemoglobin A1c was 7.0% on 02/16/2019. Continue Levemir, Glucophage, Januvia, and Accu-Cheks with SSI. Qualifiers: Diabetes mellitus unbundler insulin use: with residential use Diabetes mellitus complication status: with kidney complications Diabetes mellitus complication detail: with chronic kidney disease Chronic kidney disease stage: stage 3 (moderate) Qualified Code(s): E11.22 - Type 2 diabetes mellitus with diabetic chronic kidney disease; N18.3 - Chronic kidney disease, stage 3 (moderate); Z79.4 - warehouse foreman (current) use of insulin (3) CKD (chronic kidney disease) stage 3, GFR 30-59 ml/min Current Visit: No Status: Chronic Assessment and plan: February 25. Monitor renal indices. (4) Hypertension Current Visit: No Status: Chronic Assessment and plan: February 25. Continue lisinopril and verapamil. Qualifiers: Hypertension type: essential hypertension Qualified Code(s): I10 - Essential (primary) hypertension (5) Hypothyroid Current Visit: No Status: Chronic Assessment and plan: February 25. TSH normal at 2.852. Continue present dose Synthroid. Qualifiers: Hypothyroidism type: acquired Qualified Code(s): E03.9 - Hypothyroidism, unspecified (6) Anemia Current Visit: No Status: Chronic Assessment and plan: February 25. Anemia testing showed iron 29, transferrin saturation 15%, transferrin 134, ferritin 146, B12 364, and folate 8.1. Continue to monitor CBC. March 02. Hemoglobin improved to 11.5. Continue to monitor. Qualifiers: Anemia type: other cause Other causes of anemia: other cause, not classified Qualified Code(s): D64.89 - Other specified anemias (7) Leukocytosis Current Visit: No Status: Acute Assessment and plan: February 25. Present on most labs since February 2014. Neutrophilia rarely present. Continue to monitor. Qualifiers: Leukocytosis type: unspecified Qualified Code(s): D72.829 - Elevated white blood cell count, unspecified (8) COPD (chronic obstructive pulmonary disease) Current Visit: No Status: Chronic Assessment and plan: February 25. Continue Pro-air MDI as needed. Qualifiers: COPD type: unspecified COPD Qualified Code(s): J44.9 - Chronic obstructive pulmonary disease, unspecified (9) Gout Current Visit: No Status: Acute Assessment and plan: February 25. Uric acid level above desirable at 7.4. Increase allopurinol to 200 mg daily. March 02. Check uric acid level with other labs in a.m. March 04. Uric acid level unchanged at 7.4. Increase allopurinol to 300 mg daily. Qualifiers: Gout site: foot Gout etiology: unspecified cause Chronicity: acute Laterality: right Qualified Code(s): M10.9 - Gout, unspecified (10) Venous stasis Current Visit: No Status: Chronic Assessment and plan: February 25. Continue present Rx. (11) Ankle pain Current Visit: Yes Status: Acute Assessment and plan: March 02. CT of feet will be done along with additional labs to further evaluate. March 04. CT scan showed no acute pathology. She was seen by [facility] staff this morning. A podiatry evaluation will be done 03/07/2019. Qualifiers: Chronicity: unspecified Laterality: bilateral Qualified Code(s): M25.571 - Pain in right ankle and joints of right foot; M25.572 - Pain in left ankle and joints of left foot - Subjective Interval history: February 25. She has no new complaints. March 02. She complains of pain in her feet/ankles upon standing. March 04. She has no new complaints. She states her ankle pain has lessened slightly. - Constitutional Vitals: Temp Pulse Resp BP Pulse Ox 98.2 F 57 16 132/61 93 03/04/19 06:48 03/04/19 08:29 03/04/19 06:48 03/04/19 08:29 03/04/19 08:29 Exam: She is resting comfortably in bed and appears in no acute distress. There is no pitting edema in her lower legs and dorsum of the feet. Erythema has continued to gradually lessen. There is no pain on passive range of motion of the left ankle or forefoot. There is minimal discomfort on passive range of motion of the right ankle and forefoot. I reviewed her medications and lab results. Internal Medicine: Result - Labs CBC & Chem 7: 03/04/19 05:59 03/04/19 05:59 Labs: Short CBC 03/04/19 Range/Units 05:59 WBC 13.2 H (4.3-11.1) K/mcL Hgb 11.5 (11.5-15.4) g/dL Hct 36.3 (35.3-44.9) % Plt Count 314 (140-400) K/mcL Neutrophils # 9.2 H (1.6-8.9) K/mcL BMP 03/04/19 05:59 Sodium 138 Potassium 4.8 Chloride 99 Carbon Dioxide 33 H BUN 46 H Creatinine 1.02 Glucose 129 H Calcium 8.9 Consult Discharge Plan - Plan Referrals: Jeremy Mckinnon DO [Primary Care Provider] - 1 week
[2019-03-04] MEDS: *HR* OxyCODONE Immed Rel 5 MG TABLET PO PRN (15:38)
[2019-03-05] MEDS: Ascorbic Acid 500 MG TABLET PO SCH (05:57)
[2019-03-05] MEDS: Insulin LISPRO 300 UNITS/3 ML VIAL SQ SCH ×3 (08:03→16:58)
[2019-03-05] MEDS: BuPROPion XL (24 HR) 150 MG TABLET PO SCH (08:14)
[2019-03-05] MEDS: *HR* Metformin 500 MG TABLET PO SCH ×2 (08:14→16:56)
[2019-03-05] MEDS: FLUoxetine 20 MG CAPSULE PO SCH (08:14)
[2019-03-05] MEDS: Furosemide 40 MG TABLET PO SCH (08:15)
[2019-03-05] MEDS: Verapamil ER (24 HR) 240 MG TABLET.ER PO SCH ×2 (08:15→20:41)
[2019-03-05] MEDS: Aspirin Enteric Coated 81 MG Tablet PO SCH (08:15)
[2019-03-05] MEDS: predniSONE 20 MG TABLET PO SCH (08:15)
[2019-03-05] MEDS: Cholecalciferol (D-3) 1,000 UNIT (25MCG) TABLET PO SCH (08:16)
[2019-03-05] MEDS: *HR* SitaGLIPtin 25 MG TABLET PO SCH (08:17)
[2019-03-05] MEDS: Ammonium Lactate 30 APPL/225 GM BOTTLE TP SCH (08:18)
[2019-03-05 11:32] LABS: ANA IgG by ELISA NONE DETECTED (None Detected)
[2019-03-06] MEDS: Ascorbic Acid 500 MG TABLET PO SCH (06:03)
[2019-03-06] MEDS: *HR* Metformin 500 MG TABLET PO SCH ×2 (07:24→16:12)
[2019-03-06] MEDS: Insulin LISPRO 300 UNITS/3 ML VIAL SQ SCH ×3 (08:02→16:12)
[2019-03-06] MEDS: *HR* SitaGLIPtin 25 MG TABLET PO SCH (08:08)
[2019-03-06] MEDS: Verapamil ER (24 HR) 240 MG TABLET.ER PO SCH ×2 (08:09→19:54)
[2019-03-06] MEDS: predniSONE 20 MG TABLET PO SCH (08:10)
[2019-03-06] MEDS: Furosemide 40 MG TABLET PO SCH (08:10)
[2019-03-06] MEDS: Aspirin Enteric Coated 81 MG Tablet PO SCH (08:10)
[2019-03-06] MEDS: FLUoxetine 20 MG CAPSULE PO SCH (08:10)
[2019-03-06] MEDS: BuPROPion XL (24 HR) 150 MG TABLET PO SCH (08:11)
[2019-03-06] MEDS: Cholecalciferol (D-3) 1,000 UNIT (25MCG) TABLET PO SCH (08:11)
[2019-03-06] MEDS: Ammonium Lactate 30 APPL/225 GM BOTTLE TP SCH (08:12)
[2019-03-06] MEDS: *HR* OxyCODONE Immed Rel 5 MG TABLET PO PRN (08:13)
--- NOTE | 2019-03-06 16:44 | Internal Med Progress Note ---
Date of Encounter: 03/06/19 Time of Encounter: 16:34 - Assessment and plan (1) Cellulitis Current Visit: No Status: Acute Assessment and plan: February 25. Antibiotics have been completed. Continue to monitor for recurrent leg cellulitis Qualifiers: Site of cellulitis: extremity Site of cellulitis of extremity: lower extremity Laterality: right Qualified Code(s): L03.115 - Cellulitis of right lower limb (2) DM type 2 (diabetes mellitus, type 2) Current Visit: No Status: Chronic Assessment and plan: February 25. Hemoglobin A1c was 7.0% on 02/16/2019. Continue Levemir, Glucophage, Januvia, and Accu-Cheks with SSI. Qualifiers: Diabetes mellitus termite treater helper insulin use: with longterm use Diabetes mellitus complication status: with kidney complications Diabetes mellitus complication detail: with chronic kidney disease Chronic kidney disease stage: stage 3 (moderate) Qualified Code(s): E11.22 - Type 2 diabetes mellitus with diabetic chronic kidney disease; N18.3 - Chronic kidney disease, stage 3 (moderate); Z79.4 - regional intermodal truck driver (current) use of insulin (3) CKD (chronic kidney disease) stage 3, GFR 30-59 ml/min Current Visit: No Status: Chronic Assessment and plan: February 25. Monitor renal indices. (4) Hypertension Current Visit: No Status: Chronic Assessment and plan: February 25. Continue lisinopril and verapamil. Qualifiers: Hypertension type: essential hypertension Qualified Code(s): I10 - Essential (primary) hypertension (5) Hypothyroid Current Visit: No Status: Chronic Assessment and plan: February 25. TSH normal at 2.852. Continue present dose Synthroid. Qualifiers: Hypothyroidism type: acquired Qualified Code(s): E03.9 - Hypothyroidism, unspecified (6) Anemia Current Visit: No Status: Chronic Assessment and plan: February 25. Anemia testing showed iron 29, transferrin saturation 15%, transferrin 134, ferritin 146, B12 364, and folate 8.1. Continue to monitor CBC. March 02. Hemoglobin improved to 11.5. Continue to monitor. Qualifiers: Anemia type: other cause Other causes of anemia: other cause, not classified Qualified Code(s): D64.89 - Other specified anemias (7) Leukocytosis Current Visit: No Status: Acute Assessment and plan: February 25. Present on most labs since February 2014. Neutrophilia rarely present. Continue to monitor. Qualifiers: Leukocytosis type: unspecified Qualified Code(s): D72.829 - Elevated white blood cell count, unspecified (8) COPD (chronic obstructive pulmonary disease) Current Visit: No Status: Chronic Assessment and plan: February 25. Continue Pro-air MDI as needed. Qualifiers: COPD type: unspecified COPD Qualified Code(s): J44.9 - Chronic obstructive pulmonary disease, unspecified (9) Gout Current Visit: No Status: Acute Assessment and plan: February 25. Uric acid level above desirable at 7.4. Increase allopurinol to 200 mg daily. March 02. Check uric acid level with other labs in a.m. March 04. Uric acid level unchanged at 7.4. Increase allopurinol to 300 mg daily. Qualifiers: Gout site: foot Gout etiology: unspecified cause Chronicity: acute Laterality: right Qualified Code(s): M10.9 - Gout, unspecified (10) Venous stasis Current Visit: No Status: Chronic Assessment and plan: February 25. Continue present Rx. (11) Ankle pain Current Visit: Yes Status: Acute Assessment and plan: March 02. CT of feet will be done along with additional labs to further evaluate. March 04. CT scan showed no acute pathology. She was seen by [place] [facility] staff this morning. A podiatry evaluation will be done 03/07/2019. March 06. Podiatry evaluation tomorrow. Continue prednisone and prn oxycodone. Qualifiers: Chronicity: unspecified Laterality: bilateral Qualified Code(s): M25.571 - Pain in right ankle and joints of right foot; M25.572 - Pain in left ankle and joints of left foot - Subjective Interval history: February 25. She has no new complaints. March 02. She complains of pain in her feet/ankles upon standing. March 04. She has no new complaints. She states her ankle pain has lessened slightly. March 06. She has no new complaints. She states her ankle pain has further lessened. She reports being able to take a few steps without significant pain impairment. - Constitutional Vitals: Temp Pulse Resp BP Pulse Ox 97.5 F L 69 20 143/65 94 03/06/19 07:26 03/06/19 07:26 03/06/19 07:26 03/06/19 07:26 03/06/19 07:26 Exam: She is sitting on the side of bed resting comfortably. Her lower legs show no pitting edema. The erythema and warmth have lessened. I reviewed her medications and lab results. Internal Medicine: Result - Labs CBC & Chem 7: 03/04/19 05:59 03/04/19 05:59 Consult Discharge Plan - Plan Referrals: Jeremy Mckinnon, [Primary Care Provider] - 1 week
[2019-03-07] MEDS: Ascorbic Acid 500 MG TABLET PO SCH (05:38)
[2019-03-07] MEDS: Insulin LISPRO 300 UNITS/3 ML VIAL SQ SCH ×3 (07:36→16:24)
[2019-03-07] MEDS: *HR* SitaGLIPtin 25 MG TABLET PO SCH (07:42)
[2019-03-07] MEDS: Verapamil ER (24 HR) 240 MG TABLET.ER PO SCH ×2 (07:43→20:42)
[2019-03-07] MEDS: Furosemide 40 MG TABLET PO SCH (07:43)
[2019-03-07] MEDS: BuPROPion XL (24 HR) 150 MG TABLET PO SCH (07:44)
[2019-03-07] MEDS: Cholecalciferol (D-3) 1,000 UNIT (25MCG) TABLET PO SCH (07:44)
[2019-03-07] MEDS: FLUoxetine 20 MG CAPSULE PO SCH (07:45)
[2019-03-07] MEDS: Aspirin Enteric Coated 81 MG Tablet PO SCH (07:45)
[2019-03-07] MEDS: predniSONE 20 MG TABLET PO SCH (07:45)
[2019-03-07] MEDS: *HR* Metformin 500 MG TABLET PO SCH ×2 (07:45→16:23)
[2019-03-07] MEDS: Ammonium Lactate 30 APPL/225 GM BOTTLE TP SCH (07:46)
[2019-03-07] MEDS: *HR* OxyCODONE Immed Rel 5 MG TABLET PO PRN (07:49)
[2019-03-07] MEDS: DICLOFENAC 1% GEL TP SCH ×2 (17:26→20:43)
[2019-03-08] MEDS: Ascorbic Acid 500 MG TABLET PO SCH (06:18)
[2019-03-08] MEDS: Aspirin Enteric Coated 81 MG Tablet PO SCH (07:57)
[2019-03-08] MEDS: predniSONE 20 MG TABLET PO SCH (07:57)
[2019-03-08] MEDS: Ammonium Lactate 30 APPL/225 GM BOTTLE TP SCH (07:57)
[2019-03-08] MEDS: Cholecalciferol (D-3) 1,000 UNIT (25MCG) TABLET PO SCH (07:57)
[2019-03-08] MEDS: *HR* Metformin 500 MG TABLET PO SCH ×2 (07:57→17:41)
[2019-03-08] MEDS: *HR* SitaGLIPtin 25 MG TABLET PO SCH (07:57)
[2019-03-08] MEDS: *HR* OxyCODONE Immed Rel 5 MG TABLET PO PRN ×2 (07:58→17:40)
[2019-03-08] MEDS: BuPROPion XL (24 HR) 150 MG TABLET PO SCH (07:58)
[2019-03-08] MEDS: FLUoxetine 20 MG CAPSULE PO SCH (07:59)
[2019-03-08] MEDS: Verapamil ER (24 HR) 240 MG TABLET.ER PO SCH ×2 (07:59→20:40)
[2019-03-08] MEDS: Furosemide 40 MG TABLET PO SCH (07:59)
[2019-03-08] MEDS: Insulin LISPRO 300 UNITS/3 ML VIAL SQ SCH ×3 (08:00→17:41)
[2019-03-08] MEDS: DICLOFENAC 1% GEL TP SCH ×4 (08:01→20:47)
--- NOTE | 2019-03-08 11:18 | Internal Med Progress Note ---
Date of Encounter: 03/08/19 Time of Encounter: 11:10 - Assessment and plan (1) Cellulitis Current Visit: No Status: Acute Assessment and plan: February 25. Antibiotics have been completed. Continue to monitor for recurrent leg cellulitis Qualifiers: Site of cellulitis: extremity Site of cellulitis of extremity: lower extremity Laterality: right Qualified Code(s): L03.115 - Cellulitis of right lower limb (2) DM type 2 (diabetes mellitus, type 2) Current Visit: No Status: Chronic Assessment and plan: February 25. Hemoglobin A1c was 7.0% on 02/16/2019. Continue Levemir, Glucophage, Januvia, and Accu-Cheks with SSI. 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 Monitor renal indices. (4) Hypertension Current Visit: No Status: Chronic Assessment and plan: February 25. Continue lisinopril and verapamil. Qualifiers: Hypertension type: essential hypertension Qualified Code(s): I10 - Essential (primary) hypertension (5) Hypothyroid Current Visit: No Status: Chronic Assessment and plan: February 25. TSH normal at 2.852. Continue present dose Synthroid. Qualifiers: Hypothyroidism type: acquired Qualified Code(s): E03.9 - Hypothyroidism, unspecified (6) Anemia Current Visit: No Status: Chronic Assessment and plan: February 25. Anemia testing showed iron 29, transferrin saturation 15%, transferrin 134, ferritin 146, B12 364, and folate 8.1. Continue to monitor CBC. March 02. Hemoglobin improved to 11.5. Continue to monitor. Qualifiers: Anemia type: other cause Other causes of anemia: other cause, not classified Qualified Code(s): D64.89 - Other specified anemias (7) Leukocytosis Current Visit: No Status: Acute Assessment and plan: February 25. Present on most labs since February 2014. Neutrophilia rarely present. Continue to monitor. Qualifiers: Leukocytosis type: unspecified Qualified Code(s): D72.829 - Elevated white blood cell count, unspecified (8) COPD (chronic obstructive pulmonary disease) Current Visit: No Status: Chronic Assessment and plan: February 25. Continue Pro-air MDI as needed. Qualifiers: COPD type: unspecified COPD Qualified Code(s): J44.9 - Chronic obstructive pulmonary disease, unspecified (9) Gout Current Visit: No Status: Acute Assessment and plan: February 25. Uric acid level above desirable at 7.4. Increase allopurinol to 200 mg daily. March 02. Check uric acid level with other labs in a.m. March 04. Uric acid level unchanged at 7.4. Increase allopurinol to 300 mg daily. Qualifiers: Gout site: foot Gout etiology: unspecified cause Chronicity: acute Laterality: right Qualified Code(s): M10.9 - Gout, unspecified (10) Venous stasis Current Visit: No Status: Chronic Assessment and plan: February 25. Continue present Rx. (11) Ankle pain Current Visit: Yes Status: Acute Assessment and plan: March 02. CT of feet will be done along with additional labs to further evaluate. March 04. CT scan showed no acute pathology. She was seen by [place] [facility] staff this morning. A podiatry evaluation will be done 03/07/2019. March 06. Podiatry evaluation tomorrow. Continue prednisone and prn oxycodone. March 08. Continue Rx as ordered by reports analysis manager. Decrease prednisone to 10 mg daily. Qualifiers: Chronicity: unspecified Laterality: bilateral Qualified Code(s): M25.571 - Pain in right ankle and joints of right foot; M25.572 - Pain in left ankle and joints of left foot - Subjective Interval history: February 25. She has no new complaints. March 02. She complains of pain in her feet/ankles upon standing. March 04. She has no new complaints. She states her ankle pain has lessened slightly. March 06. She has no new complaints. She states her ankle pain has further lessened. She reports being able to take a few steps without significant pain impairment. March 08. She has no new complaints. She saw the reports analysis manager yesterday who added additional Rx for her right lower leg. She is in much less pain with walking and activities. She anticipates discharge home in few days. - Constitutional Vitals: Temp Pulse Resp BP Pulse Ox 98.4 F 61 16 125/56 94 03/08/19 06:46 03/08/19 06:46 03/08/19 06:46 03/08/19 06:46 03/08/19 06:46 Exam: She is sitting on the side of bed and appears in no acute distress. Her affect is overall cheerful. She is wearing an ankle brace and compression stocking on the right lower leg. I reviewed her medications and lab results. Internal Medicine: Result - Labs CBC & Chem 7: 03/04/19 05:59 03/04/19 05:59 Consult Discharge Plan - Plan Referrals: Jeremy Mckinnon DO [Primary Care Provider] - 1 week
[2019-03-09] MEDS: Ascorbic Acid 500 MG TABLET PO SCH (06:11)
[2019-03-09] MEDS: Cholecalciferol (D-3) 1,000 UNIT (25MCG) TABLET PO SCH (09:19)
[2019-03-09] MEDS: BuPROPion XL (24 HR) 150 MG TABLET PO SCH (09:19)
[2019-03-09] MEDS: *HR* Metformin 500 MG TABLET PO SCH ×2 (09:19→17:24)
[2019-03-09] MEDS: *HR* SitaGLIPtin 25 MG TABLET PO SCH (09:19)
[2019-03-09] MEDS: Furosemide 40 MG TABLET PO SCH (09:20)
[2019-03-09] MEDS: Aspirin Enteric Coated 81 MG Tablet PO SCH (09:20)
[2019-03-09] MEDS: predniSONE 10 MG TABLET PO SCH (09:20)
[2019-03-09] MEDS: FLUoxetine 20 MG CAPSULE PO SCH (09:20)
[2019-03-09] MEDS: Verapamil ER (24 HR) 240 MG TABLET.ER PO SCH ×2 (09:24→20:21)
[2019-03-09] MEDS: Insulin LISPRO 300 UNITS/3 ML VIAL SQ SCH ×3 (09:29→17:26)
[2019-03-09] MEDS: Ammonium Lactate 30 APPL/225 GM BOTTLE TP SCH (09:30)
[2019-03-09] MEDS: DICLOFENAC 1% GEL TP SCH ×4 (09:31→21:00)
[2019-03-10] MEDS: Ascorbic Acid 500 MG TABLET PO SCH (05:14)
[2019-03-10] MEDS: Insulin LISPRO 300 UNITS/3 ML VIAL SQ SCH ×3 (07:23→17:06)
[2019-03-10] MEDS: Aspirin Enteric Coated 81 MG Tablet PO SCH (09:11)
[2019-03-10] MEDS: *HR* Metformin 500 MG TABLET PO SCH ×2 (09:12→17:07)
[2019-03-10] MEDS: Cholecalciferol (D-3) 1,000 UNIT (25MCG) TABLET PO SCH (09:13)
[2019-03-10] MEDS: Furosemide 40 MG TABLET PO SCH (09:13)
[2019-03-10] MEDS: FLUoxetine 20 MG CAPSULE PO SCH (09:13)
[2019-03-10] MEDS: BuPROPion XL (24 HR) 150 MG TABLET PO SCH (09:15)
[2019-03-10] MEDS: *HR* OxyCODONE Immed Rel 5 MG TABLET PO PRN (09:15)
[2019-03-10] MEDS: *HR* SitaGLIPtin 25 MG TABLET PO SCH (09:15)
[2019-03-10] MEDS: predniSONE 10 MG TABLET PO SCH (09:16)
[2019-03-10] MEDS: Verapamil ER (24 HR) 240 MG TABLET.ER PO SCH ×2 (09:21→19:56)
[2019-03-10] MEDS: DICLOFENAC 1% GEL TP SCH ×4 (09:22→19:58)
--- NOTE | 2019-03-10 12:51 | Internal Med Progress Note ---
Date of Encounter: 03/10/19 Time of Encounter: 12:40 - Assessment and plan (1) Cellulitis Current Visit: No Status: Acute Assessment and plan: February 25. Antibiotics have been completed. Continue to monitor for recurrent leg cellulitis Qualifiers: Site of cellulitis: extremity Site of cellulitis of extremity: lower extremity Laterality: right Qualified Code(s): L03.115 - Cellulitis of right lower limb (2) DM type 2 (diabetes mellitus, type 2) Current Visit: No Status: Chronic Assessment and plan: February 25. Hemoglobin A1c was 7.0% on 02/16/2019. Continue Levemir, Glucophage, Januvia, and Accu-Cheks with SSI. Qualifiers: Diabetes mellitus fci insulin use: with fci use Diabetes mellitus complication status: with kidney complications Diabetes mellitus complication detail: with chronic kidney disease Chronic kidney disease stage: stage 3 (moderate) Qualified Code(s): E11.22 - Type 2 diabetes mellitus with diabetic chronic kidney disease; N18.3 - Chronic kidney disease, stage 3 (moderate); Z79.4 - vermin exterminator (current) use of insulin (3) CKD (chronic kidney disease) stage 3, GFR 30-59 ml/min Current Visit: No Status: Chronic Assessment and plan: February 25. Monitor renal indices. March 10. Recheck labs in a.m. (4) Hypertension Current Visit: No Status: Chronic Assessment and plan: February 25. Continue lisinopril and verapamil. Qualifiers: Hypertension type: essential hypertension Qualified Code(s): I10 - Essential (primary) hypertension (5) Hypothyroid Current Visit: No Status: Chronic Assessment and plan: February 25. TSH normal at 2.852. Continue present dose Synthroid. Qualifiers: Hypothyroidism type: acquired Qualified Code(s): E03.9 - Hypothyroidism, unspecified (6) Anemia Current Visit: No Status: Chronic Assessment and plan: February 25. Anemia testing showed iron 29, transferrin saturation 15%, transferrin 134, ferritin 146, B12 364, and folate 8.1. Continue to monitor CBC. March 02. Hemoglobin improved to 11.5. Continue to monitor. March 10. Recheck labs in a.m. Qualifiers: Anemia type: other cause Other causes of anemia: other cause, not classified Qualified Code(s): D64.89 - Other specified anemias (7) Leukocytosis Current Visit: No Status: Acute Assessment and plan: February 25. Present on most labs since February 2014. Neutrophilia rarely present. Continue to monitor. Qualifiers: Leukocytosis type: unspecified Qualified Code(s): D72.829 - Elevated white blood cell count, unspecified (8) COPD (chronic obstructive pulmonary disease) Current Visit: No Status: Chronic Assessment and plan: February 25. Continue Pro-air MDI as needed. Qualifiers: COPD type: unspecified COPD Qualified Code(s): J44.9 - Chronic obstructive pulmonary disease, unspecified (9) Gout Current Visit: No Status: Acute Assessment and plan: February 25. Uric acid level above desirable at 7.4. Increase allopurinol to 200 mg daily. March 02. Check uric acid level with other labs in a.m. March 04. Uric acid level unchanged at 7.4. Increase allopurinol to 300 mg daily. March 10. Recheck labs in a.m. Qualifiers: Gout site: foot Gout etiology: unspecified cause Chronicity: acute Laterality: right Qualified Code(s): M10.9 - Gout, unspecified (10) Venous stasis Current Visit: No Status: Chronic Assessment and plan: February 25. Continue present Rx. (11) Ankle pain Current Visit: Yes Status: Acute Assessment and plan: March 02. CT of feet will be done along with additional labs to further evaluate. March 04. CT scan showed no acute pathology. She was seen by [place] staff this morning. A podiatry evaluation will be done 03/07/2019. March 06. Podiatry evaluation tomorrow. Continue prednisone and prn oxycodone. March 08. Continue Rx as ordered by ciaio counter molder. Decrease prednisone to 10 mg daily. Qualifiers: Chronicity: unspecified Laterality: bilateral Qualified Code(s): M25.571 - Pain in right ankle and joints of right foot; M25.572 - Pain in left ankle and joints of left foot - Subjective Interval history: February 25. She has no new complaints. March 02. She complains of pain in her feet/ankles upon standing. March 04. She has no new complaints. She states her ankle pain has lessened slightly. March 06. She has no new complaints. She states her ankle pain has further lessened. She reports being able to take a few steps without significant pain impairment. March 08. She has no new complaints. She saw the ciaio counter molder yesterday who added additional Rx for her right lower leg. She is in much less pain with walking and activities. She anticipates discharge home in few days. March 10. She has no new complaints. She states she can walk without significant pain. - Constitutional Vitals: Temp Pulse Resp BP Pulse Ox 98.1 F 52 17 151/51 93 03/10/19 08:24 03/10/19 08:24 03/10/19 08:24 03/10/19 08:24 03/10/19 08:24 Exam: She is resting comfortably in bed and appears in no acute distress. She has no pain on passive range of motion of her forefoot her ankles. I reviewed her medications and lab results. Internal Medicine: Result - Labs CBC & Chem 7: 03/04/19 05:59 03/04/19 05:59 Consult Discharge Plan - Plan Referrals: Jeremy Mckinnon DO [Primary Care Provider] - 1 week
[2019-03-10] MEDS: Ammonium Lactate 30 APPL/225 GM BOTTLE TP SCH (12:55)
--- NOTE | 2019-03-10 15:36 | Discharge Summary ---
Date of Encounter: 03/10/19 Time of Encounter: 15:18 - Discharge Diagnosis (1) Cellulitis Priority: Primary Status: Acute Qualifiers: Site of cellulitis: extremity Site of cellulitis of extremity: lower extremity Laterality: right Qualified Code(s): L03.115 - Cellulitis of right lower limb (2) DM type 2 (diabetes mellitus, type 2) Priority: Secondary Status: Chronic Qualifiers: Diabetes mellitus jail insulin use: with jail use Diabetes mellitus complication status: with kidney complications Diabetes mellitus complication detail: with chronic kidney disease Chronic kidney disease stage: stage 3 (moderate) Qualified Code(s): E11.22 - Type 2 diabetes mellitus with diabetic chronic kidney disease; N18.3 - Chronic kidney disease, stage 3 (moderate); Z79.4 - long term care phlebotomist (current) use of insulin (3) CKD (chronic kidney disease) stage 3, GFR 30-59 ml/min Priority: Secondary Status: Chronic (4) Hypertension Priority: Secondary Status: Chronic Qualifiers: Hypertension type: essential hypertension Qualified Code(s): I10 - Essential (primary) hypertension (5) Hypothyroid Priority: Secondary Status: Chronic Qualifiers: Hypothyroidism type: acquired Qualified Code(s): E03.9 - Hypothyroidism, u nspecified (6) Anemia Priority: Secondary Status: Chronic Qualifiers: Anemia type: other cause Other causes of anemia: other cause, not classified Qualified Code(s): D64.89 - Other specified anemias (7) Leukocytosis Priority: Secondary Status: Chronic Qualifiers: Leukocytosis type: unspecified Qualified Code(s): D72.829 - Elevated white blood cell count, unspecified (8) COPD (chronic obstructive pulmonary disease) Priority: Secondary Status: Chronic Qualifiers: COPD type: unspecified COPD Qualified Code(s): J44.9 - Chronic obstructive pulmonary disease, unspecified (9) Gout Priority: Secondary Status: Chronic Qualifiers: Gout site: foot Gout etiology: unspecified cause Chronicity: acute Laterality: right Qualified Code(s): M10.9 - Gout, unspecified (10) Venous stasis Priority: Secondary Status: Chronic (11) Ankle pain Priority: Secondary Status: Acute Qualifiers: Chronicity: unspecified Laterality: bilateral Qualified Code(s): M25.571 - Pain in right ankle and joints of right foot; M25.572 - Pain in left ankle and joints of left foot Hospital course: Ms. Burrell is a 68 year old female who was hospitalized in acute-care at [facility] February 16- after presenting with right foot/lower leg pain, erythema, and edema. She was diagnosed with cellulitis, venous stasis, and gout. Uric acid level was elevated at 11.2. She was started on prednisone and allopurinol along with antibiotics. She was discharged to [facility] for rehabilitation therapy prior to returning to independent living. I saw her February 24 and performed the swing bed history and physical. She completed prescribed course of antibiotics without evidence of recurrent cellulitis. She had severe ankle pain and was seen by [facility] staff. CT of ankle showed no acute pathology. Her medications were adjusted and her pain had essentially resolved by day of discharge. She will continue allopurinol 300 mg daily at discharge. Prednisone will not be continued. Anemia testing showed iron 29, transferrin saturation 15%, transferrin 134, ferritin 146, B12 364, and folate 8.1. Her PCP can monitor CBC. On March 10 she felt stable for discharge home. 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 Ramo Mckinnon within 1 week. Home health services will be ordered. - Time Spent with Patient Total time spent providing and/or coordinating discharge services: - Discharge Medications Prescriptions: New OxyCODONE Immed Rel [Roxicodone 5 MG] 5 mg PO Q6HR PRN 3 Days #12 tablet PRN Reason: Severe Pain Ascorbic Acid [Vitamin C] 500 mg PO DAILY@0630 #30 tablet Allopurinol [Zyloprim 300 MG] 300 mg PO DAILY #30 tablet Continued Bupropion HCl [Wellbutrin Xl] 300 mg PO DAILY Albuterol Sulfate [Proair Hfa] 2 puff IH Q4H PRN PRN Reason: Shortness Of Breath FLUoxetine HCl [Prozac] 40 mg PO DAILY Metformin HCl [Glucophage] 1,000 mg PO BID Lisinopril 2.5 mg PO DAILY Ferrous Sulfate 325 mg PO DAILY Insulin Glargine,Hum.rec.anlog [Lantus Solostar] 50 units SQ HS Cholecalciferol (D-3) [Vitamin D] 4,000 unit PO DAILY Aspirin [Adult Aspirin Regimen] 81 mg PO DAILY Furosemide [Lasix] 40 mg PO DAILY Insulin ASPART [Novolog Flexpen] 0 unit SQ TIDAC Levothyroxine Sodium 175 mcg PO QAM Pravastatin Sodium [Pravachol] 40 mg PO HS SitaGLIPtin [Januvia] 100 mg PO DAILY Verapamil ER (24 HR) [Calan SR] 240 mg PO BID Ezetimibe [Zetia] 10 mg PO DAILY Discontinued predniSONE [PredniSONE] 40 mg PO DAILY #28 tablet Allopurinol [Zyloprim 100 MG] 100 mg PO DAILY #30 tablet OxyCODONE Immed Rel [Roxicodone 5 MG] 10 mg PO Q6HR PRN 5 Days #20 tablet PRN Reason: Severe Pain Doxycycline 100 mg PO BID 1 Days #2 capsule Cephalexin [Keflex] 500 mg PO QID 1 Days #4 capsule Home Medications: Ezetimibe [Zetia] 10 mg PO DAILY 04/25/15 [History] Verapamil ER (24 HR) [Calan SR] 240 mg PO BID 04/25/15 [History] Bupropion HCl [Wellbutrin Xl] 300 mg PO DAILY 05/22/16 [History] Albuterol Sulfate [Proair Hfa] 2 puff IH Q4H PRN 07/21/17 [History] Cholecalciferol (D-3) [Vitamin D] 4,000 unit PO DAILY 07/21/17 [History] FLUoxetine HCl [Prozac] 40 mg PO DAILY 07/21/17 [History] Ferrous Sulfate 325 mg PO DAILY 07/21/17 [History] Insulin Glargine,Hum.rec.anlog [Lantus Solostar] 50 units SQ HS 07/21/17 [History] Lisinopril 2.5 mg PO DAILY 07/21/17 [History] Metformin HCl [Glucophage] 1,000 mg PO BID 07/21/17 [History] Aspirin [Adult Aspirin Regimen] 81 mg PO DAILY 02/16/19 [History] Furosemide [Lasix] 40 mg PO DAILY 02/16/19 [History] Insulin ASPART [Novolog Flexpen] 0 unit SQ TIDAC 02/16/19 [History] Levothyroxine Sodium 175 mcg PO QAM 02/16/19 [History] Pravastatin Sodium [Pravachol] 40 mg PO HS 02/16/19 [History] SitaGLIPtin [Januvia] 100 mg PO DAILY 02/16/19 [History] Allopurinol [Zyloprim 300 MG] 300 mg PO DAILY #30 tablet 03/10/19 [Rx] Ascorbic Acid [Vitamin C] 500 mg PO DAILY@0630 #30 tablet 03/10/19 [Rx] OxyCODONE Immed Rel [Roxicodone 5 MG] 5 mg PO Q6HR PRN 3 Days #12 tablet 03/10/19 [Rx] Allergies/Adverse Reactions: Allergy/AdvReac Type Severity Reaction Status Date / Time No Known Allergies Allergy Verified 02/16/19 13:27 Date of admission: 02/23/19 16:23 Primary care physician: Jeremy Mckinnon DO Consults: 02/23/19 16:05 Consult to Physical Therapy [CONS] Routine Comment: Evaluate, develop and implement POC Reason for Consult: weakness Does patient have active BEDREST order?: No Is patient medically & hemodynamically stable?: Yes Patient assessed for mobility or mobilized this visit?: No OT [Consult to Occupational Therapy] [CONS] Routine Comment: Evaluate, develop and implement POC Reason for Consult: weakness Does patient have active BEDREST order?: No Is patient medically & hemodynamically stable?: Yes Patient assessed for mobility or mobilized this visit?: No 02/23/19 17:00 Consult to Forestry Consultant [CONS] Routine Reason for SW Consult: discharge planning - Constitutional Vitals: Temp Pulse Resp BP Pulse Ox 98.1 F 52 17 151/51 93 03/10/19 08:24 03/10/19 08:24 03/10/19 08:24 03/10/19 08:24 03/10/19 08:24 - Patient Status Disposition: Home Health Service - Discharge Instructions Follow Up With: Jeremy Mckinnon DO [Primary Care Provider] - 1 week - Diet and Activity Activity: as per physical therapy Diet: diabetic diet
[2019-03-10 18:48] VITALS: BP 124/64
[2019-03-11] MEDS: Ascorbic Acid 500 MG TABLET PO SCH (06:12)
--- NOTE | 2019-03-11 10:06 | Physician Discharge Referral ---
Home Health/Hosp Referral Info Transfer to: Home Health Attending Provider: Arnaud Provider in Charge Post Discharge: PCP (Jeremy Mckinnon D.O.) - Diagnosis (1) Cellulitis Priority: Primary Status: Acute (2) DM type 2 (diabetes mellitus, type 2) Priority: Secondary Status: Chronic (3) CKD (chronic kidney disease) stage 3, GFR 30-59 ml/min Priority: Secondary Status: Chronic (4) Hypertension Priority: Secondary Status: Chronic (5) Hypothyroid Priority: Secondary Status: Chronic (6) Anemia Priority: Secondary Status: Chronic (7) Leukocytosis Priority: Secondary Status: Chronic (8) COPD (chronic obstructive pulmonary disease) Priority: Secondary Status: Chronic (9) Gout Priority: Secondary Status: Chronic (10) Venous stasis Priority: Secondary Status: Chronic (11) Ankle pain Priority: Secondary Status: Acute - Respiratory Orders Smoking Cessation: Smoking cessation has been advised. For more information, call the [place] Tobacco Quit Line at 1-347-WLQX-NOW. - Diet/Nutrition Diet/Nutrition Orders: No Concentrated Sweets - Activity Activity Orders: Walker - Services Needed Following services are medically necessary services: Nursing, Home Health Aide, Physical Therapy, Occupational Therapy - Transfer Medications Prescriptions: OxyCODONE Immed Rel [Roxicodone 5 MG] 5 mg PO Q6HR PRN 3 Days #12 tablet PRN Reason: Severe Pain Ascorbic Acid [Vitamin C] 500 mg PO DAILY@0630 #30 tablet Allopurinol [Zyloprim 300 MG] 300 mg PO DAILY #30 tablet Home Medications: Ezetimibe [Zetia] 10 mg PO DAILY 04/25/15 [History] Verapamil ER (24 HR) [Calan SR] 240 mg PO BID 04/25/15 [History] Bupropion HCl [Wellbutrin Xl] 300 mg PO DAILY 05/22/16 [History] Albuterol Sulfate [Proair Hfa] 2 puff IH Q4H PRN 07/21/17 [History] Cholecalciferol (D-3) [Vitamin D] 4,000 unit PO DAILY 07/21/17 [History] FLUoxetine HCl [Prozac] 40 mg PO DAILY 07/21/17 [History] Ferrous Sulfate 325 mg PO DAILY 07/21/17 [History] Insulin Glargine,Hum.rec.anlog [Lantus Solostar] 50 units SQ HS 07/21/17 [History] Lisinopril 2.5 mg PO DAILY 07/21/17 [History] Metformin HCl [Glucophage] 1,000 mg PO BID 07/21/17 [History] Aspirin [Adult Aspirin Regimen] 81 mg PO DAILY 02/16/19 [History] Furosemide [Lasix] 40 mg PO DAILY 02/16/19 [History] Insulin ASPART [Novolog Flexpen] 0 unit SQ TIDAC 02/16/19 [History] Levothyroxine Sodium 175 mcg PO QAM 02/16/19 [History] Pravastatin Sodium [Pravachol] 40 mg PO HS 02/16/19 [History] SitaGLIPtin [Januvia] 100 mg PO DAILY 02/16/19 [History] Allopurinol [Zyloprim 300 MG] 300 mg PO DAILY #30 tablet 03/10/19 [Rx] Ascorbic Acid [Vitamin C] 500 mg PO DAILY@0630 #30 tablet 03/10/19 [Rx] OxyCODONE Immed Rel [Roxicodone 5 MG] 5 mg PO Q6HR PRN 3 Days #12 tablet 03/10/19 [Rx] Allergies/Adverse Reactions: Allergy/AdvReac Type Severity Reaction Status Date / Time No Known Allergies Allergy Verified 02/16/19 13:27 Certification: Further, I certify that my clinical findings support that this patient is homebound (i.e. absences from home require considerable and taxing effort and are for medical reasons or mormonism services or infrequently or short duration when for other reasons) because: Homebound Reason: Leaving home requires considerable and taxing effort due to condition (Impaired walking ability secondary to bilateral ankle pain) Attestation: My signature below is to certify that this patient is under my care and that I, or nurse practitioner, or a physician's veterinary technician assistant working with me, has a [id number] encounter with this patient.
== END 2019-03-11 06:30 | disposition home health service (06) | DRG 603 ==
LOC: INPPIK 16:23
PROVIDERS: ADMIT Internal Medicine; ATTEND Internal Medicine